=== PATIENT | male | born 1935 | race Caucasian/White ===

== ENCOUNTER 2020-01-06 11:32 | Outpatient (CLI) | payer MEDICARE | END 2020-01-06 11:33 | disposition home or self-care (01) | LOC: LAB 11:32 | PROVIDERS: ATTEND Anesthesiology | DX: Z01.812 Encounter for preprocedural laboratory examination (principal); Z20.828 Contact with and (suspected) exposure to other viral communicable diseases | CPT/HCPCS: 81599 ==